=== PATIENT | male | born 1960 | race African-American/Black ===

== ENCOUNTER 2017-09-23 14:30 | Emergency (ER) | payer MEDICAID ==
[~2017-09-23] VITALS: Ht 172.7 cm; Wt 88.6 kg
[~2017-09-23 14:30] MED LIST: AMOXICILLIN 50500 MG PO; BIAXIN 500MG T500 MG PO; CARAFATE 1GM1 G PO; HCTZ 25MG TAB25 MG PO; PRILOSEC 20MG20 MG PO; TUMS500 MG PO
[2017-09-23 14:32] VITALS: TEMP 97.8
[2017-09-23] MEDS ORDERED: [UNRECOGNIZED DRUG - REMARK] PO (14:37)
[2017-09-23] MEDS ORDERED: STOMACH ULCER MED PO (14:37)
[2017-09-23 15:32] LABS: BASO % 0.8 % (0.0-2.0); EOS # 0.2 (0.0-0.7); EOS % 4.3 % (0-4.0); GRAN # 2.8 (1.4-6.5); GRAN % 54.4 % (42.2-75.2); HEMATOCRIT 43.8 % (42.0-52.0); HEMOGLOBIN 14.2 g/dl (13.5-18.0); LYMPH # 1.7 (1.2-3.4); LYMPH % 32.5 % (20.0-51.0); MEAN CELL VOLUME 92 fl (80.0-100.0); MEAN CORPUSCULAR HEMOGLOBIN 30 pg (27.0-31.0); MEAN CORPUSCULAR HGB CONC 32 g/dl (33.0-37.0); MEAN PLATELET VOLUME 11.3 fl (7.4-10.4); MONO # 0.4 (0.1-0.6); MONO % 7.8 % (1.7-9.3); PLATELET COUNT 174 K/mm3 (130-400); RED BLOOD COUNT 4.78 M/mm3 (4.20-5.60); WHITE BLOOD COUNT 5.1 K/mm3 (4.8-10.8)
[2017-09-23 15:53] LABS: ADJUSTED CALCIUM 9.9 mg/dL (8.4-10.2); ALANINE AMINOTRANSFERASE 37 U/L (21-72); ALBUMIN 4.4 gm/dL (3.5-5.0); ALKALINE PHOSPHATASE 40 U/L (50-136); ANION GAP 9 mmol/L (7-16); BILIRUBIN,TOTAL 0.4 mg/dL (0.0-1.0); BLOOD UREA NITROGEN 18 mg/dL (9-20); CALCIUM 10.2 mg/dL (8.4-10.2); CARBON DIOXIDE 27 mmol/L (22-30); CHLORIDE 102 mmol/L (98-107); CREATININE, serum 1.19 mg/dL (0.66-1.25); GLUCOSE 95 mg/dL (74-106); POTASSIUM 3.9 mmol/L (3.4-5.0); SODIUM 138 mmol/L (137-145); TOTAL PROTEIN 7.5 gm/dL (6.4-8.2)
[2017-09-23 16:05] LABS: B-TYPE NATRIURETIC PEPTIDE 25 pg/mL (0-125)
[2017-09-23 16:07] LABS: TROPONIN-I < 0.012 ng/mL (0.000-0.034)
[2017-09-23 17:15] VITALS: BP 145/101; PULSE 68
== END 2017-09-23 17:16 | disposition home or self-care (01) ==
LOC: COL.ER 14:30
PROVIDERS: Emergency Medicine
DX: R07.89 Other chest pain (principal); I10 Essential (primary) hypertension